=== PATIENT | male | born 1950 | race Caucasian/White ===

== ENCOUNTER → 2016-08-08 | Outpatient (CLI) | payer MEDICARE | END | disposition home or self-care (01) | LOC: CFH 11:18 | PROVIDERS: ATTEND Nurse Practitioner Primary Care | DX: M48.56XA Collapsed vertebra, not elsewhere classified, lumbar region, initial encounter for fracture (principal); M51.34 Other intervertebral disc degeneration, thoracic region; M51.36 Other intervertebral disc degeneration, lumbar region; X58.XXXA Exposure to other specified factors, initial encounter; R11.10 Vomiting, unspecified; Y93.89 Activity, other specified; Y92.89 Other specified places as the place of occurrence of the external cause; Y99.8 Other external cause status | CPT/HCPCS: 72072; 72100 ==

== ENCOUNTER → 2016-08-29 | Outpatient (CLI) | payer MEDICARE | END | disposition home or self-care (01) | LOC: CFH 07:30 | PROVIDERS: ATTEND Nurse Practitioner Primary Care | DX: Z13.820 Encounter for screening for osteoporosis (principal); S32.019A Unspecified fracture of first lumbar vertebra, initial encounter for closed fracture; M85.89 Other specified disorders of bone density and structure, multiple sites; M48.8X6 Other specified spondylopathies, lumbar region; X58.XXXA Exposure to other specified factors, initial encounter; Y93.89 Activity, other specified; Y92.89 Other specified places as the place of occurrence of the external cause; Y99.8 Other external cause status | CPT/HCPCS: 72148; 77080 ==

== ENCOUNTER → 2016-08-30 | Outpatient (CLI) | payer MEDICARE ==
[~2016-08-30] MED LIST: SINCALIDE (KINEVAC) 5 MCG ONE
== END | disposition home or self-care (01) ==
LOC: PETCFH 08:19
PROVIDERS: ATTEND Nurse Practitioner Primary Care
DX: R11.10 Vomiting, unspecified (principal); E03.9 Hypothyroidism, unspecified; N41.9 Inflammatory disease of prostate, unspecified; E78.2 Mixed hyperlipidemia
CPT/HCPCS: 78227; A9537; J2805

== ENCOUNTER → 2016-11-09 | Outpatient (CLI) | payer MEDICARE ==
[~2016-11-09] MED LIST changes: +ALEN70TA3 PO; +LEVO100T5 PO; +LOVA10TA PO; -SINCALIDE (KINEVAC) 5 MCG ONE; +VALA500T PO
[2016-11-09 09:50] LABS: BLOOD UREA NITROGEN 16 mg/dL (7-18)
== END | disposition home or self-care (01) ==
LOC: STAR 08:26
PROVIDERS: ATTEND Neurological Surgery
DX: Z01.818 Encounter for other preprocedural examination (principal); M48.56XS Collapsed vertebra, not elsewhere classified, lumbar region, sequela of fracture; R94.31 Abnormal electrocardiogram [ECG] [EKG]; R79.1 Abnormal coagulation profile
CPT/HCPCS: 36415; 71020; 80048; 85025; 85610; 85730; 93005

== ENCOUNTER 2016-11-16 06:31 | Day surgery (SDC) | payer MEDICARE ==
[~2016-11-16] VITALS: Ht 171.4 cm; Wt 79.9 kg
[2016-11-16] MEDS ORDERED: LACTATED RINGERS 1,000 ML IV SCH (07:37)
[2016-11-16 07:54] VITALS: BP 131/88
[2016-11-16] MEDS ORDERED: LIDOCAINE 1%, 2ML SQ PRN (08:00)
[2016-11-16] MEDS ORDERED: FENTANYL PF 100 MCG/2ML ONE ×3 (08:40→10:58)
[2016-11-16] MEDS ORDERED: MIDAZOLAM 1 MG/ML, 2ML ONE (08:40)
[2016-11-16] MEDS ORDERED: BUPIVACAINE/PF-EPI 0.5% 1:200K ONE (09:20)
[2016-11-16] MEDS ORDERED: GLYCOPYRROLATE 0.2MG/1ML ONE (09:28)
[2016-11-16] MEDS ORDERED: PROPOFOL 10 MG/ML, 20ML ONE (09:28)
[2016-11-16] MEDS ORDERED: CEFAZOLIN 1,000 MG ONE (09:28)
[2016-11-16] MEDS ORDERED: ROCURONIUM 10 MG/ML ONE (09:28)
[2016-11-16] MEDS ORDERED: NEOSTIGMINE 1 MG/ML, 10ML ONE (09:28)
[2016-11-16] MEDS ORDERED: ONDANSETRON 2MG/ML, 2ML IVPush PRN (09:30)
[2016-11-16] MEDS ORDERED: PROMETHAZINE 25 MG/ML, 1ML IV PRN (09:30)
[2016-11-16] MEDS ORDERED: HYDROmorphone 1 MG/ML, 1ML IV PRN (09:30)
[2016-11-16] MEDS ORDERED: hydrALAzine 20 MG/ML, 1ML IV PRN (09:30)
[2016-11-16] MEDS ORDERED: ACETAMINOPHEN 325 MG TABLET PO PRN (09:30)
[2016-11-16] MEDS ORDERED: OXYcodone 5 MG/5 ML ORAL.SOL UDC PO PRN (09:30)
[2016-11-16] MEDS ORDERED: FENTANYL PF 100 MCG/2ML IV PRN (09:30)
[2016-11-16] MEDS ORDERED: METOCLOPRAMIDE 5 MG/ML, 2ML IV PRN (09:30)
[2016-11-16] MEDS ORDERED: MEPERIDINE/PF 25MG/0.5ML IVPush PRN (09:30)
[2016-11-16] MEDS ORDERED: LABETALOL 5MG/ML, 20ML IV PRN (09:30)
[2016-11-16] MEDS ORDERED: OMNIPAQUE 180 MG/ML, 20ML VIAL ONE (10:31)
[2016-11-16] MEDS ORDERED: ACETAMINOPHEN 325 MG/10.15 ML UDC ONE (10:57)
[2016-11-16] MEDS ORDERED: ACETAMINOPHEN 650 MG/20.3 ML UDC ONE (10:57)
[2016-11-16] MEDS ORDERED: OXYcodone 5 MG/5 ML ORAL.SOL UDC ONE (10:58)
== END 2016-11-16 13:20 ==
LOC: OUT 06:31
PROVIDERS: ATTEND Neurological Surgery
DX: M48.56XS Collapsed vertebra, not elsewhere classified, lumbar region, sequela of fracture (principal); Z87.01 Personal history of pneumonia (recurrent); E03.9 Hypothyroidism, unspecified; Z87.39 Personal history of other diseases of the musculoskeletal system and connective tissue; Z98.890 Other specified postprocedural states; Z79.82 Long term (current) use of aspirin
CPT/HCPCS: 22514; 72100; C1713; J0690; J2250; J2704; J2710; J3010; Q9965; J3490

== ENCOUNTER 2018-08-13 08:28 | Outpatient (CLI) | payer MEDICARE | END 2018-08-13 23:59 | disposition home or self-care (01) | LOC: CFH 08:28 | PROVIDERS: ATTEND Internal Medicine | DX: M85.88 Other specified disorders of bone density and structure, other site (principal); E78.2 Mixed hyperlipidemia; E03.9 Hypothyroidism, unspecified | CPT/HCPCS: 77080 ==